=== PATIENT | male | born 1960 | race Caucasian/White ===

== ENCOUNTER 2019-06-26 15:06 | Emergency (ER) | payer OTHER ==
[~2019-06-26] VITALS: Ht 188 cm; Wt 122.5 kg
--- NOTE | ~2019-06-26 | EKG ---
[place] [address] ELECTROCARDIOGRAM REPORT Name: ROBIN PADGETT Room: [facility]#: [id number] Admission: 06/26/19 Attend Phys: Discharge: 06/26/19 Date of : 58 Date of Service: 06/26/19 1534 Report #: [id number] THIS REPORT FOR: cc: Marc Gilliam Vincent R. 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
[~2019-06-26 15:06] MED LIST: AMLODIPINE BESY10 MG PO; ASPIRIN EC325 M1 PO; OMEPRAZOLE
[2019-06-26] MEDS ORDERED: COZAAR 25 MG TA25 M1 PO (15:16)
[2019-06-26] MEDS ORDERED: GLIMEPIRIDE1 MG PO (15:17)
[2019-06-26] MEDS ORDERED: JANUVIA25 MG PO (15:17)
[2019-06-26 15:39] LABS: URINE BILIRUBIN NEGATIVE (Negative); URINE BLOOD NEGATIVE (Negative); URINE CLARITY CLEAR; URINE COLOR YELLOW; URINE GLUCOSE-RANDOM NEGATIVE (Negative); URINE KETONES NEGATIVE (Negative); URINE LEUKOCYTES-REFLEX NEGATIVE (Negative); URINE NITRITE-REFLEX NEGATIVE (Negative); URINE PROTEIN NEGATIVE (Negative)
[2019-06-26 15:57] LABS: ABSOLUTE BASOPHILS 0.1 thou/uL (0.0-0.2); ABSOLUTE EOSINOPHILS 0.3 thou/uL (0.0-0.7); ABSOLUTE LYMPHOCYTES 1.6 thou/uL (0.8-5.3); ABSOLUTE MONOCYTES 0.7 thou/uL (0.0-1.2); BASOPHILS 1.2 %; EOSINOPHILS 4.9 %; HEMATOCRIT 44.1 % (42.0-52.0); HEMOGLOBIN 15.1 gm/dL (14.0-18.0); LYMPHOCYTES 23.4 %; MCHC 34.2 g/dL (28.0-37.0); MCV 90.8 fL (80.0-100.0); MPV 10.4 fl. (7.2-11.1); NUCLEATED RBCS 0 /100WBC; PLATELET COUNT* 175 thou/uL (150-400); POLYS 60.5 %; RBC 4.85 mil/uL (4.50-6.00); WBC 6.6 thou/uL (4.0-11.0)
[2019-06-26 16:06] LABS: PROTIME 10.7 Seconds (9.20-11.50)
[2019-06-26 16:09] LABS: CALCIUM 8.7 mg/dL (8.5-10.1); CREATININE 0.9 mg/dL (0.6-1.3); POTASSIUM 3.8 mmol/L (3.5-5.1)
[2019-06-26 16:17] LABS: ALBUMIN 3.7 g/dL (3.4-5.0); TOTAL BILIRUBIN 0.9 mg/dL (<0.1-1.0); TOTAL PROTEIN 7.2 g/dL (6.4-8.2)
[2019-06-26 18:29] VITALS: BP 138/87
== END 2019-06-26 18:33 | disposition home or self-care (01) ==
LOC: M.ERS 15:06
PROVIDERS: Emergency Medicine Emergency Medical Services
DX: I95.1 Orthostatic hypotension (principal); I10 Essential (primary) hypertension; E11.9 Type 2 diabetes mellitus without complications; M19.90 Unspecified osteoarthritis, unspecified site; K21.9 Gastro-esophageal reflux disease without esophagitis; J45.909 Unspecified asthma, uncomplicated; G47.30 Sleep apnea, unspecified